=== PATIENT | female | born 1960 | race Caucasian/White ===

== ENCOUNTER → 2021-05-16 | Outpatient (CLI) | payer MEDICARE, OTHER ==
[~2021-05-16] MED LIST: AMLODIPINE BESYL5 MG PO; ASPIRIN EC81 MG PO; ATIVAN0.5 MG PO; CALCIUM CARBON500 MG PO; CYCLOBENZAPRINE10 MG PO; ESTRACE1 MG PO; FLUTICASONE PRO15 G1 TOP; FLUTICASONE PROPIONA; IBU800 MG PO; KEPPRA500 MG PO; LISINOPRIL-HCT1 EAC1 PO; METOPROLOL SUCC50 MG PO; MINOCYCLINE HC100 MG PO; OXYCODON-ACETA1 EAC1 PO; PSEUDOEPHEDRINE30 MG PO; SERTRALINE HCL100 MG PO; SYNTHROID300 MCG PO; TEXACORT; VITAMIN D3125 MCG PO; WELLBUTRIN XL300 MG PO; ZOFRAN 4 MG TAB4 MG PO
== END ==
LOC: EDSTATUS 10:30 → OPSV2 10:30
DX: Z01.818 Encounter for other preprocedural examination (principal); M17.11 Unilateral primary osteoarthritis, right knee
CPT/HCPCS: 71046

== ENCOUNTER 2021-05-31 05:49 | Day surgery (SDC) | payer MEDICARE, OTHER ==
[~2021-05-31] VITALS: Ht 162.6 cm; Wt 86.2 kg
[~2021-05-31 05:49] MED LIST changes: -ASPIRIN EC81 MG PO; -CALCIUM CARBON500 MG PO; -CYCLOBENZAPRINE10 MG PO; -FLUTICASONE PRO15 G1 TOP; -IBU800 MG PO; -KEPPRA500 MG PO; -OXYCODON-ACETA1 EAC1 PO; -SERTRALINE HCL100 MG PO; -VITAMIN D3125 MCG PO; -ZOFRAN 4 MG TAB4 MG PO
[2021-05-31] MEDS ORDERED: CYCLOBENZAPRINE10 MG PO (10:38)
[2021-05-31] MEDS ORDERED: ZOFRAN 4 MG TAB4 MG PO (10:38)
[2021-05-31] MEDS ORDERED: OXYCODON-ACETA1 EAC1 PO (10:38)
[2021-05-31] MEDS ORDERED: ASPIRIN EC81 MG PO (10:38)
--- NOTE | 2021-06-01 00:35 | NUR ---
AT 2300 NEURO CHECK ON 05/31/21, PT POLAR ICE REFILLED WITH FRESH ICE AND WATER. PT STATED SHE WANTED TO CONTINUALLY WEARING IT. NEURO CHECK WNL. PT STATES INCREASED FEELING TO RIGHT FOOT AND ABSCENCE OF BURNING. PT STATED SHE DID NOT NEED ANY PAIN MEDICATION. WCTM
--- NOTE | 2021-06-01 02:51 | NUR ---
ICE AND WATER CHANGED FOR POLAR ICE MACHINE WITH 0300 NEUROVASCULAR CHECK TO RLE. PT STATES SHE WANTS TO CONTINUE WEARING DEVICE FOR REST OF SHIFT.
[2021-06-01 07:33] LABS: HEMOGLOBIN 11.2 gm/dl (12.3-15.3); RED BLOOD COUNT 3.82 M/UL (4.00-5.10); WHITE BLOOD COUNT 12.9 K/UL (4.5-11.0)
[2021-06-01 07:56] LABS: BUN/CREATININE RATIO 18 (0-10)
[2021-06-01] MEDS ORDERED: FLUTICASONE PRO15 G1 TOP (10:32)
[2021-06-01] MEDS ORDERED: ATIVAN0.5 MG PO (10:34)
[2021-06-01] MEDS ORDERED: IBU800 MG PO (11:14)
[2021-06-01] MEDS ORDERED: SERTRALINE HCL100 MG PO (11:24)
[2021-06-01] MEDS ORDERED: KEPPRA500 MG PO (11:26)
[2021-06-01] MEDS ORDERED: CALCIUM CARBON500 MG PO (11:28)
[2021-06-01] MEDS ORDERED: VITAMIN D3125 MCG PO (11:28)
== END 2021-06-01 12:40 | disposition home or self-care (01) ==
LOC: OR 05:49 → EDSTATUS 07:30 → M/S 18:19 → OR 06-01 12:40
PROVIDERS: Orthopaedic Surgery
DX: M17.11 Unilateral primary osteoarthritis, right knee (principal); M22.41 Chondromalacia patellae, right knee; I10 Essential (primary) hypertension; K21.9 Gastro-esophageal reflux disease without esophagitis; E03.9 Hypothyroidism, unspecified; F32.A Depression, unspecified; F41.9 Anxiety disorder, unspecified; Z91.048 Other nonmedicinal substance allergy status; Z79.899 Other long term (current) drug therapy; Z20.822 Contact with and (suspected) exposure to COVID-19
CPT/HCPCS: 73560; 80048; 85025; 97110-GP-CQ; 97116; 97116-GP-CQ; 97162; 97166; 97530; 97535; C1713; C1776; J0171; J0690; J1100; J1170; J2250; J2405; J2704; J2795; J3010; J3370; J7120